=== PATIENT | female | born 1975 | race Caucasian/White ===

== ENCOUNTER 2022-02-06 09:14 | Emergency (ER) | payer BC, OTHER ==
[~2022-02-06] VITALS: Ht 170.2 cm; Wt 136.1 kg
[2022-02-06] MEDS ORDERED: IBUPROFEN 400 MG TAB PO STA (09:26)
[2022-02-06] MEDS ORDERED: IBUPROFEN 400 MG TAB ONE (09:57)
[2022-02-06] MEDS ORDERED: BACITRACIN ZINC 15 GM OINT TOP SCH (10:15)
[2022-02-06] MEDS ORDERED: HYDROCODONE/APAP 5MG-325MG TAB PO ONE (10:45)
[2022-02-06] MEDS ORDERED: ACETAMINOPHEN-1 EAC4 PO (10:49)
[2022-02-06] MEDS ORDERED: HYDROCODONE/APAP 5MG-325MG TAB ONE (11:06)
== END 2022-02-06 11:00 | disposition home or self-care (01) ==
LOC: FSED 09:31
DX: S82.52XA Displaced fracture of medial malleolus of left tibia, initial encounter for closed fracture (principal); W01.0XXA Fall on same level from slipping, tripping and stumbling without subsequent striking against object, initial encounter; Y93.K1 Activity, walking an animal; S80.01XA Contusion of right knee, initial encounter; Z88.8 Allergy status to other drugs, medicaments and biological substances; E11.9 Type 2 diabetes mellitus without complications; I10 Essential (primary) hypertension
CPT/HCPCS: 99283